=== PATIENT | female | born 1965 | race African-American/Black ===

== ENCOUNTER 2017-06-22 16:18 | Emergency (ER) | payer MEDICAID ==
[~2017-06-22] VITALS: Ht 162.6 cm; Wt 60.0 kg
[2017-06-22 16:50] VITALS: BP 124/84
[2017-06-22] MEDS ORDERED: TETANUS, DIPHTHERIA, PERTUSSIS VAC/PF 0.5ML (>7YR OLD) IM ONE (18:45)
[2017-06-22] MEDS ORDERED: BACITRACIN ZINC OINT UDPKT TOP ONE (18:45)
== END 2017-06-22 21:10 | disposition home or self-care (01) ==
LOC: ER 21:02
DX: S71.152A Open bite, left thigh, initial encounter (principal); W54.0XXA Bitten by dog, initial encounter; Y93.89 Activity, other specified; Y92.89 Other specified places as the place of occurrence of the external cause; J06.9 Acute upper respiratory infection, unspecified; Z23 Encounter for immunization; Z88.5 Allergy status to narcotic agent
CPT/HCPCS: 90471; 90715; 99283

== ENCOUNTER 2019-03-03 11:07 | Emergency (ER) | payer MEDICAID, OTHER ==
[~2019-03-03] VITALS: Ht 167.6 cm; Wt 56.0 kg
[2019-03-03] MEDS ORDERED: KETOROLAC 30MG/ML VIAL IM ONE (11:45)
[2019-03-03 12:39] VITALS: BP 114/78
== END 2019-03-03 12:42 | disposition home or self-care (01) ==
LOC: ER 11:07
DX: K08.89 Other specified disorders of teeth and supporting structures (principal); Z88.5 Allergy status to narcotic agent
CPT/HCPCS: 81025; 96372; 99283; J1885